=== PATIENT | female | born 1980 | race Caucasian/White ===

== ENCOUNTER 2020-12-10 05:45 | Day surgery (SDC) | payer OTHER ==
[~2020-12-10] VITALS: Ht 162.6 cm; Wt 143.2 kg
[~2020-12-10 05:45] MED LIST: DICLOFENAC SODI75 MG PO; MACROBID 100 M100 MG PO; MELATONIN10 M2 PO; PRILOSEC OTC20 MG PO; TRAZODONE HCL100 MG PO
[2020-12-10] MEDS ORDERED: ALLERGY4 MG PO (05:57)
[2020-12-10] MEDS ORDERED: HYDROCODON-ACE1 EA10 PO (07:36)
--- NOTE | 2020-12-10 07:37 | NUR ---
12/10/20 0737 Nancy Valadez 0732- PT ARRIVES TO PACU ALERT AND TALKING. PT REPORTS NO PAIN OR NAUSEA. RESP EVEN AND UNLABORED. OXYGEN SAT HIGH 90'S TO 100% ON 6L VIA MASK. 0734- OXYGEN TITRATED OFF. ICE PACK APPLIED TO PT'S PT'S WRIST WITH DRESSING IN BETWEEN SKIN AND ICE PACK.
--- NOTE | 2020-12-10 08:36 | OR ---
[facility] [address] [place], [place] [address] Signed DATE OF OPERATION: 12/10/2020 SURGEON: Fuad Berger MD PREOPERATIVE DIAGNOSIS: Carpal tunnel syndrome, right. POSTOPERATIVE DIAGNOSIS: Carpal tunnel syndrome, right. PROCEDURE PERFORMED: Right carpal tunnel release. INSURANCE MARKETING SPECIALIST: None. ANESTHESIA: Aldo block. TOURNIQUET TIME: 20 minutes. BRIEF HISTORY: Sarah is a 40-year-old female with numbness and pain in her wrist. Nerve conduction studies confirmed carpal tunnel and she wished to proceed with release. Risks and benefits were discussed at length. She understood and wished to proceed. DESCRIPTION OF PROCEDURE: Once consent was obtained, she was taken to the operating room. After adequate anesthesia, she was placed on operating room table, all downside pressure points were well padded. The arm was prepped and draped in the standard sterile fashion. The wrist was approached through a 1.5 cm incision and the distal wrist crease carried through skin and subcutaneous tissue. Palmaris longus was identified, retracted and protected. Transverse carpal ligament was dissected free of overlying soft tissue under loupe magnification. The ligament was released proximally about a cm, distally was released to the distal extent. This was palpated using a [place] and found to be completely released. The wound was then copiously irrigated with normal saline, closed with 3-0 nylon and infiltrated with 5 mL of 0.25% Marcaine plain. Wound was then dressed with bacitracin, Adaptic, 4 x 8s, and gauze. She tolerated the procedure well. All sponge, needle, and Electronically Signed By: FUAD BERGER MD 12/10/20 0836 PATIENT NAME: SARAH YANCEY OPERATIVE REPORT DATE OF : 84 REPORT #: [id number] PHYSICIAN: FUAD BERGER MD PCP: REYNA WISEMAN PAC REPORT IS CONFIDENTIAL AND NOT TO BE RELEASED WITHOUT AUTHORIZATION [facility] [address] [facility] [place], [place] [address] Signed instrument counts were correct. Fuad Berger MD BA/ALEX /[id number] Copies: ~ Electronically Signed By: FUAD BERGER MD 12/10/20 0836 PATIENT NAME: SARAH YANCEY OPERATIVE REPORT DATE OF : 84 REPORT #: [id number] PHYSICIAN: FUAD BERGER MD PCP: REYNA WISEMAN PAC REPORT IS CONFIDENTIAL AND NOT TO BE RELEASED WITHOUT AUTHORIZATION
--- NOTE | 2020-12-10 13:12 | EKG ---
[facility] [address] [facility] [place], [place] [address] Signed Normal sinus rhythm Low voltage QRS Possible Anterolateral infarct (cited on or before 07-DEC-2020) Abnormal ECG When compared with ECG of 07-DEC-2020 16:20, No significant change was found Confirmed by MORA TREVINO DO ([id number]) on 12/10/2020 1:12:07 PM Electronically Signed By: MORA TREVINO DO 12/10/20 1312 PATIENT NAME: EM YANCEY SANDEEP Electrocardiogram DATE OF : 84 PHYSICIAN: MORA TREVINO DO REPORT #: [id number] REPORT IS CONFIDENTIAL AND NOT TO BE RELEASED WITHOUT AUTHORIZATION
== END 2020-12-10 08:07 | disposition home or self-care (01) ==
LOC: DS 05:45
PROVIDERS: ATTEND Specialist
PROC: 01N50ZZ Release Median Nerve, Open Approach (ICD-10-PCS; principal; 2020-12-10 06:45)
DX: G56.01 Carpal tunnel syndrome, right upper limb (principal)
CPT/HCPCS: 93005; 93010; J0690; J1100; J1885; J2250; J2405; J2704; J3010; J7121

== ENCOUNTER 2022-07-12 08:35 | Day surgery (SDC) | payer OTHER ==
[~2022-07-12] VITALS: Ht 162.6 cm; Wt 145.9 kg
[~2022-07-12 08:35] MED LIST changes: +ALLERGY4 MG PO; +COZAAR25 MG PO; +CYCLOBENZAPRINE10 MG PO; +HYDROCODON-ACE1 EA10 PO; +TRAZODONE HCL50 MG PO; +[UNRECOGNIZED DRUG - CODE] PO
[2022-07-12] MEDS ORDERED: HYDROCODON-ACE1 EAC8 PO (14:42)
--- NOTE | 2022-07-13 06:11 | OR ---
[facility] [address] [place], [place] [address] Signed DATE OF OPERATION: 07/12/2022 SURGEON: Alex Huerta MD PREOPERATIVE DIAGNOSIS: Left lateral neck epidermal inclusion cyst. POSTOPERATIVE DIAGNOSIS: Left lateral neck epidermal inclusion cyst (15 mm). PROCEDURE: Excision of left lateral neck epidermal inclusion cyst. ESTIMATED BLOOD LOSS: None. INDICATIONS: Sarah is a 41-year-old obese female, who has had trouble with an epidermal inclusion cyst on the left lateral neck. It has been infected twice and she said it was terrible. She said it was extremely painful. It is required incision and drainage. She has done well with the Bactrim. She was asked to see me as a local general surgeon to have it excised. I explained to Sarah the nature of an epidermal inclusion cyst in the office. We can see that the surrounding tissue was extremely indurated. It needs to be excised full thickness for definitive treatment. We almost always do these in the OR because of the amount of chronic inflammation and bleeding that they undergo. She understands the elliptical incision required to remove the lesion. There is risk including, but not limited to bleeding, infection, scarring, change in contour the skin as well as possible need for additional surgery based on the pathology results. She understands this would be a day surgery, she is to go home afterwards. She had expressed understanding and wished to proceed. PROCEDURE NOTE: I met with Sarah in the preop area. The nurse, myself and Sarah all identified the lesion and marked that appropriately. After this, she was taken into the operating room and placed in the supine position under general LMA anesthesia. We carefully rotated her head to the right. We put the bed in reverse Trendelenburg and ever so slightly rotated to the right. She was then prepped and draped in the usual sterile fashion. We injected local anesthetic and underneath the lesion. An elliptical incision was made obliquely to excise the lesion full thickness with a 15 blade knife. We realized there was just a little bit more epidermal inclusion cyst on the inferior margin, so we Electronically Signed By: ALEX HUERTA MD 07/13/22 0611 PATIENT NAME: SARAH YANCEY OPERATIVE REPORT DATE OF : 84 REPORT #: [id number] PHYSICIAN: ALEX HUERTA MD PCP: PERRY BELL MD REPORT IS CONFIDENTIAL AND NOT TO BE RELEASED WITHOUT AUTHORIZATION [facility] [address] [place], [place] [address] Signed excised that as well. The two specimens together measure 15 mm in diameter. We took this down into the subcutaneous tissues. It was quite indurated. The wound was irrigated and suctioned out until clear. We closed the dermis with interrupted 3-0 subcuticular Monocryl sutures. The skin edges were brought back together with a running 5-0 fast absorbing plain gut suture. Dry gauze and tape were then applied. Sarah was then awakened from anesthesia, extubated in the OR, and taken to recovery room in stable condition. Alex Huerta MD ALB/MODL /[id number] cc: MD Alex Spaulding MD Copies: PERRY BELL DMD, ANDREW L MD ~ Electronically Signed By: ALEX HUERTA MD 07/13/22 0611 PATIENT NAME: SARAH YANCEY OPERATIVE REPORT DATE OF : 84 REPORT #: [id number] PHYSICIAN: ALEX HUERTA MD PCP: PERRY BELL MD REPORT IS CONFIDENTIAL AND NOT TO BE RELEASED WITHOUT AUTHORIZATION
--- NOTE | 2022-07-24 03:05 | PATH ---
[facility] [address] [place], [place] [address] Signed SPECIMEN(S): A LEFT NECK EPIDERMAL INCLUSION CYST SPECIMEN(S): B LEFT NECK INFERIOR MARGIN SPECIMEN SOURCE: A. LEFT NECK EPIDERMAL INCLUSION CYST B. LEFT NECK INFERIOR MARGIN CLINICAL HISTORY: Epidermal inclusion cyst, left neck. FINAL PATHOLOGIC DIAGNOSIS: A. Skin, left neck cyst, excision: - Features suggestive of epidermoid cyst (epidermal inclusion cyst). See Comment. B. Skin, left neck inferior margin, biopsy: - Unremarkable skin with no evidence of cyst or neoplasm identified. COMMENT: The left neck epidermal inclusion cyst sections contain a cystic space with focal keratin debris, lined by inflammation and giant cells. The overall findings are suggestive of a ruptured epidermal inclusion cyst with no remaining squamous epithelial lining. The cyst is disrupted at one biopsy edge. As part of [facility] Quality Improvement Program, this case was reviewed by another member of our pathology staff. NRT:ROSA:miguelito:C2NR MICROSCOPIC EXAMINATION: Histologic sections of all submitted blocks are examined by light microscopy. These findings, together with the gross examination, support the pathologic diagnosis. GROSS DESCRIPTION: Two specimens are received in two containers, labeled "SK." A. The specimen, labeled "SK, left neck epidural inclusion cyst," is received in formalin and consists of an ellipse of grossman skin measuring 2.2 x 1.0 x 0.8 cm. The specimen is inked blue and serially sectioned. Upon sectioning revealed a cyst-like nodule measuring 0.4 x 0.4 x 0.3 cm. Entirely submitted in cassettes A1A2. B. The specimen, labeled "SK, left neck inferior margin," is received in formalin and consists of an ellipse of grossman skin measuring 2.6 x 0.5 x 0.7 cm. PATIENT NAME: EM YANCEY PATHOLOGY DATE OF : 84 REPORT #: [id number] PHYSICIAN: CHAIM PATHOLOGY PCP: PERRY BELL MD REPORT IS CONFIDENTIAL AND NOT TO BE RELEASED WITHOUT AUTHORIZATION [facility] [address] [place], [place] [address] Signed The specimen is inked green and serially sectioned. Entirely submitted in cassettes B1B2. HH (under the direct supervision of a pathologist) The Gross Description was prepared using a voice recognition system. The report was reviewed for accuracy; however, sound-alike word errors, addition and/or deletions may occur. If there is any question about this report, please contact Client Services. PERFORMING LABORATORY: The technical component was performed by [facility], [address] [place] [address] (CLIA# [id number]). [facility], [address] [place] [id number] (CLIA# [id number]). Diagnostician: Xin Matta MD Pathologist Electronically Signed 07/24/2022 Copies: ~ PATIENT NAME: EM YANCEY PATHOLOGY DATE OF : 84 REPORT #: [id number] PHYSICIAN: CHAIM QUICK PCP: PERRY BELL MD REPORT IS CONFIDENTIAL AND NOT TO BE RELEASED WITHOUT AUTHORIZATION
== END 2022-07-12 14:58 | disposition home or self-care (01) ==
LOC: DS 08:35
PROVIDERS: ATTEND Colon & Rectal Surgery
PROC: 0JB50ZZ Excision of Left Neck Subcutaneous Tissue and Fascia, Open Approach (ICD-10-PCS; principal; 2022-07-12 10:45)
DX: L72.0 Epidermal cyst (principal); E66.9 Obesity, unspecified; I10 Essential (primary) hypertension; Z68.43 Body mass index [BMI] 50.0-59.9, adult
CPT/HCPCS: 00300; J0330; J0690; J1100; J1644; J1885; J2001; J2405; J2704; J3010